=== PATIENT | female | born 1975 | race Caucasian/White ===

== ENCOUNTER → 2017-06-16 | Outpatient (CLI) | payer OTHER ==
--- NOTE | 2017-06-17 13:25 | MM ---
Reason for exam: screening (asymptomatic). Physical Findings: A clinical breast exam by your physician is recommended on an annual basis and results should be correlated with mammographic findings. MG 3D Screening Mammo W/Cad Bilateral CC and MLO view(s) were taken. No prior studies available for comparison. There are scattered fibroglandular densities. There is no discrete abnormality. ASSESSMENT: Negative, BI-RAD 1 RECOMMENDATION: Routine screening mammogram of both breasts in 1 year.
== END | disposition home or self-care (01) ==
LOC: RADMAMWWP 10:09
PROVIDERS: ATTEND Family Medicine
DX: Z12.31 Encounter for screening mammogram for malignant neoplasm of breast (principal)
CPT/HCPCS: 77063; 77067

== ENCOUNTER 2020-07-01 07:51 | Day surgery (SDC) | payer BC ==
[2020-06-28 09:14] VITALS: BMI 23.9
[~2020-07-01 07:51] MED LIST: LACTATED RINGERS 1,000 ML IV SCH; LIDOCAINE 1% (10MG/ML) FOR IV START INTRADERMA PRN
[2020-07-01 10:08] VITALS: RESP 16; TEMP 96.7
[2020-07-01] MEDS ORDERED: PROPOFOL 10 MG/ML 20 ML VIAL IV ONE (10:41)
[2020-07-01] MEDS ORDERED: LIDOCAINE 1% INJ 10MG/ML (20 ML MDV) ONE (10:41)
--- NOTE | 2020-07-01 11:12 | P.PCN ---
Date of Procedure: 07/01/20 Description of Procedure: BRIEF HISTORY: Patient is a 45-year-old female presenting for outpatient esophagogastroduodenoscopy for evaluation of GERD. She reports a long-standing history of reflux. Patient was seen in the clinic reporting being on PPI therapy and Pepcid both taken in the morning. But she reported frequent symptoms of feeling sick and the sensation of morning sickness lasting throughout the day. No dysphagia or odynophagia. She has been seen by a chiropractor and at that time felt as if she had a hiatal hernia reduced with improvement in her symptoms but subsequently the symptoms recurred PROCEDURE PERFORMED: Esophagogastroduodenoscopy with biopsy. PREOPERATIVE DIAGNOSIS: Gastroesophageal reflux disease. ESTIMATED BLOOD LOSS: Minimal. IV sedation per anesthesia. PROCEDURE: After informed consent was obtained, the patient was brought into the endoscopy unit. IV sedation was administered by Anesthesia under continuous monitoring. Initially the Olympus GIF-190 video endoscope was inserted into the mouth. Esophagus intubated without any difficulty. It was gradually advanced into the stomach and duodenum and carefully examined. The bulb and the second part of the duodenum appeared normal, with biopsies taken to rule out celiac sprue. The scope at this time was withdrawn to the stomach, adequately insufflated with air, and upon careful examination, mucosa of the antrum, body, cardia and the fundus appeared normal, with biopsies of the antrum and body taken to rule out Helicobacter pylori infection. The scope was then withdrawn into the esophagus. The GE junction was located at 38 cm from the incisors. The esophagus appeared normal, with biopsies taken of the lower esophagus and midesophagus. There were no erosions or ulcerations seen and the patient tolerated the procedure well. IMPRESSION: 1. Normal upper endoscopy, no evidence of peptic ulcer disease, hiatal hernia or other pathology on EGD. 2. Biopsies of the duodenum, antrum and body, lower esophagus and midesophagus. RECOMMENDATIONS: The findings of this examination were discussed with the patient and her family. Okay to resume diet. Okay to resume medications. Await pathology from biopsies. Follow up in the GI clinic as scheduled.
[2020-07-01 11:21] VITALS: BP 114/78; PULSE 71
== END 2020-07-01 11:57 | disposition home or self-care (01) ==
LOC: ORWHC2ENDO 07:51
PROVIDERS: ATTEND Internal Medicine
DX: K29.50 Unspecified chronic gastritis without bleeding (principal); K21.9 Gastro-esophageal reflux disease without esophagitis; Z79.890 Hormone replacement therapy; Z79.899 Other long term (current) drug therapy
CPT/HCPCS: 81025; 88305; 43239; J2001; J2704

== ENCOUNTER → 2024-02-09 | Outpatient (CLI) | payer BC ==
--- NOTE | 2024-02-09 11:40 | XR ---
EXAMINATION TYPE: XR lumbar spine 2 or 3V DATE OF EXAM: 02/09/2024 10:39 AM COMPARISON: None CLINICAL INDICATION: Female, 48 years old with history of M54.10 RADICULOPATHY, SITE UNSPECIFIED; [facility] TECHNIQUE: XR lumbar spine 2 or 3V - Frontal, lateral and coned in L5-S1 lateral views of the spine. FINDINGS: No evidence of any acute osseous pathology. No evidence of loss of vertebral body height i s seen. There is mild rightward scoliosis alignment of the lumbar vertebral bodies. Scattered disc sp hang narrowing. Multilevel marginal osteophyte formation throughout the visualized spine. There is fac et joint arthropathy throughout the spine. Scattered at least mild neural foraminal stenosis. IMPRESSION: 1. No acute fracture. 2. Mild multilevel disc degeneration. [facility], , 02/09/2024 11:38 AM
--- NOTE | 2024-02-09 11:41 | XR ---
EXAMINATION TYPE: XR pelvis AP view DATE OF EXAM: 02/09/2024 10:39 AM COMPARISON: None CLINICAL INDICATION: Female, 48 years old with history of M54.10 RADICULOPATHY, SITE UNSPECIFIED; LOC[facility]IN [facility] TECHNIQUE: XR pelvis AP view, examined in a single projection. FINDINGS: There is no evidence of fracture or dislocation. There is no soft tissue abnormality. Pelv ic phleboliths are present. The spine appears intact. The hips appear intact. No significant degener ation. Mild degeneration changes of the sacroiliac joints and L5-S1. Mild joint space narrowing and o steophyte formation of the hips. IMPRESSION: No acute osseous pathology. Mild degeneration changes of the hip. Mild bilateral sacroiliac joint osteoporosis. [facility], , 02/09/2024 11:39 AM
== END | disposition home or self-care (01) ==
LOC: RADXRMAIN 10:07
PROVIDERS: ATTEND Chiropractor
DX: M51.17 Intervertebral disc disorders with radiculopathy, lumbosacral region (principal); M47.27 Other spondylosis with radiculopathy, lumbosacral region; M81.0 Age-related osteoporosis without current pathological fracture; M99.73 Connective tissue and disc stenosis of intervertebral foramina of lumbar region; M16.9 Osteoarthritis of hip, unspecified
CPT/HCPCS: 72100; 72170